=== PATIENT | female | born 1975 | race American Indian/Alaskan Native ===

== ENCOUNTER 2018-02-24 15:28 | Emergency (ER) | payer MEDICAID ==
[2018-02-24 16:27] VITALS: BP 164/104
[2018-02-24] MEDS ORDERED: MOTRIN PO ONE (16:27)
[2018-02-24] MEDS ORDERED: TORADOL IM ONE (20:50)
[2018-02-24] MEDS ORDERED: DELTASONE PO ONE (20:50)
--- NOTE | 2018-02-24 21:03 | Emergency Department Report ---
HPI - General Chief Complaint: Extremity Problem,Nontraumatic Time Seen by Provider: 02/24/18 19:32 - HPI HPI: 42-year-old female presents to ED with left hand pain 2-3 days. Patient states her physical throbbing and tingling sensation on her left hand. Patient states painful Guillermo of face. Patient denies any trauma injuries or fall to the hand. Patient states she is a diabetic and has not taken her meds metformin for her wall due to the fact that she is other insurance. Patient also states that she has a history of a blood pressure continues to take lisinopril 10 mg daily. ED Past Medical Hx - Past Medical History Hx Hypertension: Yes Hx Diabetes: Yes Additional medical history: denies - Surgical History Past Surgical History?: No Additional Surgical History: c-sections, boils - Social History Smoking Status: Current Every Day Smoker Substance Use Type: None - Medications Home Medications: Home Medications Medication Instructions Recorded Confirmed Last Taken Type EPINEPHrine [Epipen 2-Maryan] 0.3 mg IM PRN #2 device 03/31/14 11/09/14 Unknown Rx Losartan/Hydrochlorothiazide 1 each PO DAILY 11/09/14 11/09/14 Unknown History [Hyzaar 50-12.5 Tablet] Albuterol Sulfate [Ventolin HFA] 2 puff IH Q4H PRN #1 hfa.aer.ad 04/05/16 Unknown Rx Azithromycin [Zithromax Z-MARYAN] 250 mg PO DAILY #1 pkg 04/05/16 Unknown Rx Promethazine /Codeine 5 ml PO Q6H PRN #150 udc 04/05/16 Unknown Rx [Phenergan/Codeine 6.25-10 mg/5 ml] predniSONE [Deltasone] 40 mg PO QDAY #10 tab 04/05/16 Unknown Rx Cyclobenzaprine [Flexeril] 10 mg PO QHS PRN #20 tablet 02/24/18 Unknown Rx Ibuprofen [Motrin] 800 mg PO Q8HR PRN #40 tablet 02/24/18 Unknown Rx Lisinopril [Zestril] 10 mg PO DAILY #40 tablet 02/24/18 Unknown Rx metFORMIN [Glucophage] 500 mg PO BID #40 tablet 02/24/18 Unknown Rx ED Review of Systems ROS: Stated complaint: LEFT ARM PAIN/SWELLING Other details as noted in HPI Constitutional: denies: chills, fever Eyes: denies: eye pain, eye discharge, vision change ENT: denies: ear pain, throat pain Respiratory: denies: cough, shortness of breath, wheezing Cardiovascular: denies: chest pain, palpitations Endocrine: no symptoms reported Gastrointestinal: denies: abdominal pain, nausea, diarrhea Genitourinary: denies: urgency, dysuria, discharge Musculoskeletal: myalgia. denies: back pain, joint swelling, arthralgia Skin: denies: rash, lesions Neurological: denies: headache, weakness, paresthesias Psychiatric: denies: anxiety, depression Hematological/Lymphatic: denies: easy bleeding, easy bruising Physical Exam - Physical Exam Vital Signs: Vital Signs 02/24/18 16:22 Temperature 98.5 F Pulse Rate 97 H Blood Pressure 164/104 O2 Sat by Pulse 96 Oximetry Physical Exam: GENERAL: Alert and oriented x3, no apparent distress, Normal Gait, atraumatic. HEAD: Head is normocephalic and a-traumatic. NECK: Supple. Non edematous, No lymphadenopathy or thyromegaly. No C-spine tenderness, full range of motion LUNGS: Symetrical with respiration, No wheezing, no rales or crackles, CTAB. HEART: S1, S2 present, regular rate and rhythm without murmur, no rubs, no gallops. Non tender to palpation EXTREMITIES/MUSCULOSKELETAL: No cyanosis, clubbing, rash, lesions or edema of all upper extremities. Full ROM bilaterally. Radial Pulses 2+ bilaterally. LE and UE 5+ strength bilaterally, left hand tender to palpation, no lacerations, no pitting edema, capillary refills 2 seconds NEUROLOGIC: The patient is cooperative with no focal neurologic deficits. SKIN: Warm and dry, No lesions, No ulceration or induration present. ED Course Vital Signs 02/24/18 16:22 Temperature 98.5 F Pulse Rate 97 H Blood Pressure 164/104 O2 Sat by Pulse 96 Oximetry ED Medical Decision Making - Medical Decision Making 42-year-old female presents with hand pain. ED course: Patient received pain medication and ED. I discussed patieNT uncontrolled diabetes can cause neuropathic pain. I discussed the patient that I would refill her blood pressure and diabetes medication. Discussed patient to follow up with primary care. I discussed the patient to the air wrist brace to help with hand pain. Patient received wrist hand brace in ED prior to discharge. Patient had asymptomatic elevated blood pressure. And states that her blood pressures usually that his. I discussed the patient to start taking blood pressure medication as she gets home. Vital signs are normal. Patient is in no acute or respiratory distress. Critical care attestation.: If time is entered above; I have spent that time in minutes in the direct care of this critically ill patient, excluding procedure time. ED Disposition Clinical Impression: Arthralgia of hand, left Diabetic neuropathy Qualifiers: Diabetes mellitus type: type 2 Disposition: DC-01 TO HOME OR SELFCARE Is pt being admited?: No Does the pt Need Aspirin: No Condition: Stable Instructions: Diabetes Mellitus Type 2 in Adults (ED), Diabetic Neuropathy (ED) , Arthralgia (ED) Additional Instructions: Make sure to follow up with the primary care physician as discussed. Take all your medications as you've been prescribed. If you have any worsening symptoms or develop new symptoms please return to ED immediately. Prescriptions: Cyclobenzaprine [Flexeril] 10 mg PO QHS PRN #20 tablet PRN Reason: Muscle Spasm Ibuprofen [Motrin] 800 mg PO Q8HR PRN #40 tablet PRN Reason: Pain Lisinopril [Zestril] 10 mg PO DAILY #40 tablet metFORMIN [Glucophage] 500 mg PO BID #40 tablet Referrals: PRIMARY CARE, [Primary Care Provider] - 3-[address] [facility] [Outside] - 3-5 Days [facility] [Outside] - 3-5 Days Forms: Accompanied Note, Work/School Release Form(ED) Time of Disposition: 21:11
== END 2018-02-24 21:40 | disposition home or self-care (01) ==
LOC: ED 15:28
DX: M79.642 Pain in left hand (principal); E11.42 Type 2 diabetes mellitus with diabetic polyneuropathy; I10 Essential (primary) hypertension; F17.200 Nicotine dependence, unspecified, uncomplicated
CPT/HCPCS: 29125; 96372; 99282; J1885; J7512

== ENCOUNTER 2018-03-17 13:52 | Emergency (ER) | payer MEDICAID ==
[2018-03-17] MEDS ORDERED: TYLENOL #3 PO ONE (17:32)
[2018-03-17] MEDS ORDERED: TORADOL IM ONE (17:32)
[2018-03-17] MEDS ORDERED: CATAPRES PO ONE (17:42)
--- NOTE | 2018-03-17 17:42 | Emergency Department Report ---
ED Back Pain/Injury HPI - General Chief Complaint: Back Pain/Injury Stated Complaint: BACK PAIN Time Seen by Provider: 03/17/18 17:24 Source: patient Limitations: No Limitations - History of Present Illness Initial Comments: This is a 42-year-old female nontoxic, well nourished in appearance, no acute signs of distress presents to the ED with c/o of right sided mid back pain that radiates to right abdomen area. Patient stated has history of back pain but not this severe. Patient denies any trauma. Denies any bladder or bowel instability. Denies any fever, chills, nausea, vomiting, headache, stiff neck, chest pain or shortness of breath. Patient denies any numbness or tingling. Denies any allergies. PMH includes HTN and DM. Patient stated she missed her dose of lisinopril this morning. MD Complaint: back pain -: days(s) (1) Similar Symptoms Previously: Yes Radiation: abdomen Severity: moderate Severity scale (0 -10): 8 Quality: aching Consistency: constant Improves With: immobilization, supine, sitting upright Worsens With: movement, walking Associated Symptoms: abdominal pain. denies: confusion, weakness, chest pain, numbness, difficulty walking, cough, difficulty urinating, diaphoresis, incontinence, fever/chills, constipation, headaches, loss of appetite, malaise, nausea/vomiting, rash, seizure, shortness of breath, syncope - Related Data Home Medications Medication Instructions Recorded Confirmed Last Taken Losartan/Hydrochlorothiazide 1 each PO DAILY 11/09/14 11/09/14 Unknown [Hyzaar 50-12.5 Tablet] Previous Rx's Medication Instructions Recorded Last Taken Type EPINEPHrine [Epipen 2-Maryan] 0.3 mg IM PRN #2 device 03/31/14 Unknown Rx Albuterol Sulfate [Ventolin HFA] 2 puff IH Q4H PRN #1 hfa.aer.ad 04/05/16 Unknown Rx Azithromycin [Zithromax Z-MARYAN] 250 mg PO DAILY #1 pkg 04/05/16 Unknown Rx Promethazine /Codeine 5 ml PO Q6H PRN #150 udc 04/05/16 Unknown Rx [Phenergan/Codeine 6.25-10 mg/5 ml] predniSONE [Deltasone] 40 mg PO QDAY #10 tab 04/05/16 Unknown Rx Cyclobenzaprine [Flexeril] 10 mg PO QHS PRN #20 tablet 02/24/18 Unknown Rx Ibuprofen [Motrin] 800 mg PO Q8HR PRN #40 tablet 02/24/18 Unknown Rx Lisinopril [Zestril] 10 mg PO DAILY #40 tablet 02/24/18 Unknown Rx metFORMIN [Glucophage] 500 mg PO BID #40 tablet 02/24/18 Unknown Rx Acetaminophen/Codeine [Tylenol 1 tab PO Q6H PRN #12 tab 03/17/18 Unknown Rx /Codeine # 3 tab] Ibuprofen [Motrin] 600 mg PO Q8H PRN #30 tablet 03/17/18 Unknown Rx Allergies Allergy/AdvReac Type Severity Reaction Status Date / Time No Known Allergies Allergy Verified 11/09/14 23:26 ED Review of Systems ROS: Stated complaint: BACK PAIN Other details as noted in HPI Constitutional: denies: chills, fever Eyes: denies: eye pain, eye discharge, vision change ENT: denies: ear pain, throat pain Respiratory: denies: cough, shortness of breath, wheezing Cardiovascular: denies: chest pain, palpitations Endocrine: no symptoms reported Gastrointestinal: abdominal pain. denies: nausea, vomiting, diarrhea Genitourinary: denies: urgency, dysuria, discharge Musculoskeletal: back pain. denies: joint swelling, arthralgia Skin: denies: rash, lesions Neurological: denies: headache, weakness, paresthesias Psychiatric: denies: anxiety, depression Hematological/Lymphatic: denies: easy bleeding, easy bruising ED Past Medical Hx - Past Medical History Hx Hypertension: Yes Hx Diabetes: Yes Additional medical history: denies - Surgical History Additional Surgical History: c-sections, boils - Social History Smoking Status: Never Smoker Substance Use Type: None - Medications Home Medications: Home Medications Medication Instructions Recorded Confirmed Last Taken Type EPINEPHrine [Epipen 2-Maryan] 0.3 mg IM PRN #2 device 03/31/14 11/09/14 Unknown Rx Losartan/Hydrochlorothiazide 1 each PO DAILY 11/09/14 11/09/14 Unknown History [Hyzaar 50-12.5 Tablet] Albuterol Sulfate [Ventolin HFA] 2 puff IH Q4H PRN #1 hfa.aer.ad 04/05/16 Unknown Rx Azithromycin [Zithromax Z-MARYAN] 250 mg PO DAILY #1 pkg 04/05/16 Unknown Rx Promethazine /Codeine 5 ml PO Q6H PRN #150 udc 04/05/16 Unknown Rx [Phenergan/Codeine 6.25-10 mg/5 ml] predniSONE [Deltasone] 40 mg PO QDAY #10 tab 04/05/16 Unknown Rx Cyclobenzaprine [Flexeril] 10 mg PO QHS PRN #20 tablet 02/24/18 Unknown Rx Ibuprofen [Motrin] 800 mg PO Q8HR PRN #40 tablet 02/24/18 Unknown Rx Lisinopril [Zestril] 10 mg PO DAILY #40 tablet 02/24/18 Unknown Rx metFORMIN [Glucophage] 500 mg PO BID #40 tablet 02/24/18 Unknown Rx Acetaminophen/Codeine [Tylenol 1 tab PO Q6H PRN #12 tab 03/17/18 Unknown Rx /Codeine # 3 tab] Ibuprofen [Motrin] 600 mg PO Q8H PRN #30 tablet 03/17/18 Unknown Rx ED Physical Exam - General Limitations: No Limitations General appearance: alert, in no apparent distress - Head Head exam: Present: atraumatic, normocephalic - Eye Eye exam: Present: normal appearance Pupils: Present: normal accommodation - ENT ENT exam: Present: normal exam, mucous membranes moist - Neck Neck exam: Present: normal inspection, full ROM. Absent: tenderness, meningismus, lymphadenopathy - Respiratory Respiratory exam: Present: normal lung sounds bilaterally. Absent: respiratory distress, wheezes, rales, rhonchi, stridor, chest wall tenderness, accessory muscle use, decreased breath sounds, prolonged expiratory - Cardiovascular Cardiovascular Exam: Present: regular rate, normal rhythm, tachycardia, normal heart sounds. Absent: irregular rhythm, systolic murmur, diastolic murmur, rubs , gallop - GI/Abdominal GI/Abdominal exam: Present: soft, tenderness (RUQ), normal bowel sounds. Absent : distended, guarding, rebound, rigid, diminished bowel sounds - Expanded GI/Abdominal Exam Expanded GI/Abdominal exam: Absent: psoas sign, obturator sign, heel tap sign, Ocampo's sign, Rovsing's sign, tenderness at Mcburney's Point, ascites - Rectal Rectal exam: Present: deferred - Extremities Exam Extremities exam: Present: normal inspection, full ROM, normal capillary refill. Absent: tenderness - Back Exam Back exam: Present: normal inspection, full ROM, paraspinal tenderness (right throacic spine). Absent: CVA tenderness (R), CVA tenderness (L), muscle spasm, vertebral tenderness, rash noted - Expanded Back Exam Expanded Back exam: Absent: saddle anesthesia Back exam: Negative Straight Leg Raising: Left, Right - Neurological Exam Neurological exam: Present: alert, oriented X3, normal gait - Psychiatric Psychiatric exam: Present: normal affect, normal mood - Skin Skin exam: Present: warm, dry, intact, normal color. Absent: rash ED Course Vital Signs 03/17/18 03/17/18 14:20 18:07 Temperature 98.4 F Pulse Rate 92 H 94 H Respiratory 20 Rate Blood Pressure 184/120 184/120 O2 Sat by Pulse 98 Oximetry - Reevaluation(s) Reevaluation #1: 03/17/18 18:28 Patient is speaking in full sentences with no signs of distress noted. - Consultations Consultation #1: 03/17/18 18:29 Patient has been consulted with Dr. Carmona about patient history, physical exam, and labs/CT and agrees to ED plan of care. ED Medical Decision Making - Lab Data Result diagrams: 03/17/18 17:42 03/17/18 17:42 - Medical Decision Making This is a 42-year-old female that presents with cholelithiasis and hypertension. Patient is stable and was examined by me and Dr. Carmona. CT of abdomen with contrast obtained and dictated by the radiologist. Patient is notified of the CT report with no questions noted by the patient. Labs obtained. UA obtained. PAtient received Toradol, Catapres, Tylenol No. 3 and stated symptoms are resolving and subsiding. B/P decreased prior to discharge. Patient was instructed to continue taking blood pressure medication as her primary care doctor prescribed. Patient is daughter is currently at the bedside and states she will just the patient home after discharge due to possible drowsiness of Tylenol 3. A po challenge has been obtained and patient tolerated well with no nausea or vomiting. Patient is discharged with Motrin and Tylenol No. 3. Patient was instructed to Follow-up with a primary care doctor in 3-5 days or if symptoms worsen and continue return to emergency room as soon as possible. At time of discharge, the patient does not seem toxic or ill in appearance. No acute signs of distress noted. Patient agrees to discharge treatment plan of care. No further questions noted by the patient. Critical care attestation.: If time is entered above; I have spent that time in minutes in the direct care of this critically ill patient, excluding procedure time. ED Disposition Clinical Impression: Hypertension Qualifiers: Hypertension type: unspecified Qualified Code(s): I10 - Essential (primary) hypertension Cholelithiasis Qualifiers: Cholelithiasis location: gallbladder Cholecystitis presence: without cholecystitis Biliary obstruction: with biliary obstruction Qualified Code(s): K80.21 - Calculus of gallbladder without cholecystitis with obstruction Disposition: TO HOME OR SELFCARE Is pt being admited?: No Does the pt Need Aspirin: No Condition: Stable Instructions: Hypertension (ED), Biliary Colic (ED), Acetaminophen/Codeine (By mouth) Additional Instructions: Follow-up with a primary care doctor in 3-5 days or if symptoms worsen and continue return to emergency room as soon as possible. 2. Battery of your blood pressure and presented to primary care doctor. Prescriptions: Acetaminophen/Codeine [Tylenol /Codeine # 3 tab] 1 tab PO Q6H PRN #12 tab PRN Reason: Pain Ibuprofen [Motrin] 600 mg PO Q8H PRN #30 tablet PRN Reason: Pain Referrals: PRIMARY CARE, [Primary Care Provider] - 3-5 Days SABRINA FIGUEROA MD [Staff Physician] - 3-5 Days [facility] [Outside] - 3-5 Days [facility] [Outside] - 3-5 Days Forms: Work/School Release Form(ED)
[2018-03-17 18:03] LABS: Basophils # (Auto) 0.1 K/mm3 (0.0-0.1); Eosinophils # (Auto) 0.2 K/mm3 (0.0-0.4); Eosinophils % (Auto) 2.3 % (0.0-4.3); Hemoglobin 12.3 gm/dl (10.1-14.3); Lymphocytes # (Auto) 4.3 K/mm3 (1.2-5.4); Lymphocytes % (Auto) 46.7 % (13.4-35.0); Mean Corpuscular HGB Conc 32 % (30-34); Mean Corpuscular Volume 80 fl (79-97); Monocytes # (Auto) 0.5 K/mm3 (0.0-0.8); Monocytes % (Auto) 5.2 % (0.0-7.3); Platelet Count 313 K/mm3 (140-440); Red Blood Count 4.85 M/mm3 (3.65-5.03); Red Cell Distribution Width 15.4 % (13.2-15.2)
[2018-03-17 18:15] LABS: Mean Corpuscular Hemoglobin 25 pg (28-32)
[2018-03-17 18:27] LABS: Alanine Aminotransferase 8 units/L (7-56); Albumin 3.7 g/dL (3.9-5); BUN/Creatinine Ratio 32; Blood Urea Nitrogen 19 mg/dL (7-17); Calcium 9.3 mg/dL (8.4-10.2); Hemolysis Index 15; Lipase 20 units/L (13-60)
[2018-03-17 19:24] LABS: Bilirubin,Urine NEG (Negative); Blood,Urine NEG (Negative); Color,Urine Yellow (Yellow); Mucus,Urine 3+ /HPF; Urobilinogen,Urine < 2.0 mg/dL (<2.0)
[2018-03-17 19:26] LABS: Protein,Urine >500 mg/dL (Negative)
--- NOTE | 2018-03-17 20:28 | Cat Scan Report ---
FINAL REPORT PROCEDURE: CT ANGIO CHEST TECHNIQUE: Computerized tomographic angiography of the chest was performed after the IV injection of iodinated nonionic contrast including image processing. The image data was postprocessed using 2-dimensional multiplanar reformatted (MPR) and 3-dimensional (MIP and/or volume rendered) techniques. HISTORY: back pain with shortness of breath COMPARISON: No prior studies are available for comparison. FINDINGS: Prominent thyroid. Heart and pericardium: Normal. Thoracic aorta: Normal. Pulmonary vasculature: Normal. Lymph nodes: There are borderline prominent bilateral axillary lymph nodes. There are also numerous subcentimeter mediastinal nodes and periaortic lymph nodes identified. Lungs: Normal. Pleural space: No effusion, thickening, or pneumothorax. Musculoskeletal structures: Multilevel thoracic spine degenerative disc changes, with disc space narrowing and osteophyte formation. Upper abdominal structures: See separate CT report. There is skin thickening noted in the midline anterior chest wall. Correlate with exam. IMPRESSION: No evidence of pulmonary emboli. Mild adenopathy. Prominent thyroid gland
--- NOTE | 2018-03-17 20:48 | Cat Scan Report ---
FINAL REPORT PROCEDURE: CT ABDOMEN PELVIS W CON TECHNIQUE: Computerized axial tomography of the abdomen and pelvis was performed after the IV injection of iodinated nonionic contrast. HISTORY: abd pain COMPARISON: No prior studies are available for comparison. FINDINGS: Liver: Normal size and attenuation. Spleen: Normal size and attenuation. Gallbladder and biliary system: Numerous gallstones are present. The common bile duct measures 8 millimeters in caliber. There is also high density seen in the common bile duct, concerning for choledocholithiasis. Pancreas: Normal. Adrenals: Normal. 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 No hydronephrosis of either kidney is noted. GI tract: No bowel obstruction or acute inflammation. Lymph nodes and mesentery: Normal. Vasculature: Normal. Bladder: Normal. Reproductive organs: Uterine fibroids. Peritoneum: No free fluid. Musculoskeletal structures: Multilevel lumbar spine degenerative changes. Other: None. IMPRESSION: Cholelithiasis. The common bile duct is dilated, and there is also probable choledocholithiasis. Recommend further evaluation Ectopic kidney. Uterine fibroids
[2018-03-17 20:58] VITALS: BP 156/107
== END 2018-03-17 21:20 | disposition home or self-care (01) ==
LOC: ED 13:52
DX: I10 Essential (primary) hypertension (principal); K80.21 Calculus of gallbladder without cholecystitis with obstruction; E11.9 Type 2 diabetes mellitus without complications
CPT/HCPCS: 36415; 71275; 74177; 80053; 81001; 83690; 84703; 85025; 96372; 99284; J1885; Q9967

== ENCOUNTER 2021-12-22 06:28 | Emergency (ER) | payer MEDICAID, OTHER ==
[2021-12-22 08:25] VITALS: BP 164/111
--- NOTE | 2021-12-22 09:20 | Emergency Department Report ---
ED General Adult HPI - General Chief complaint: Dental/Oral Stated complaint: ALLERGIC REACTION TO MEDS Time Seen by Provider: 12/22/21 08:43 Source: patient Mode of arrival: Ambulatory Limitations: No Limitations - History of Present Illness Initial comments: 46-year-old morbid obese -French female presents to the emergency room complaining of 2 complaints. Patient states that she has a history of hidradenitis and has been placed on clindamycin vaginal as well as another medication that starts with an a.m. that she is not able to remember. She also states that she has a dental abscess in her left upper jaw and her dentist is placed on oral clindamycin and Flagyl. Patient complains of itching in her vulvar area and will have a internal itch. She has taken nothing for this itchiness. She states that her dentist reports that her pain may be coming from a tooth sitting on a nerve. She reports she gave her Camas for 4 pills. She reports that her commercial fisherman also gave her prescription for fluconazole that she had taken and then another prescription for Diflucan. Patient states that the fluconazole did not help but she is still on antibiotics. She never started the prescription for Diflucan. Onset/Timin -: week(s) Location: mouth, genitals Severity scale (0 -10): 8 Quality: stabbing (In her mouth), aching (Mouth), other (Itching in her genital area) Consistency: constant Improves with: none Worsens with: none Associated Symptoms: denies other symptoms. denies: headaches, loss of appet ite, nausea/vomiting, shortness of breath, syncope, weakness - Related Data Home Medications Medication Instructions Recorded Confirmed Last Taken Losartan/Hydrochlorothiazide 1 each PO DAILY 11/09/14 11/09/14 Unknown [Hyzaar 50-12.5 Tablet] Previous Rx's Medication Instructions Recorded Last Taken Type EPINEPHrine [Epipen 2-Maryan] 0.3 mg IM PRN #2 device 03/31/14 Unknown Rx Albuterol Sulfate [Ventolin HFA] 2 puff IH Q4H PRN #1 hfa.aer.ad 04/05/16 Unknown Rx Azithromycin [Zithromax Z-MARYAN] 250 mg PO DAILY #1 pkg 04/05/16 Unknown Rx Promethazine /Codeine 5 ml PO Q6H PRN #150 udc 04/05/16 Unknown Rx [Phenergan/Codeine 6.25-10 mg/5 ml] predniSONE [Deltasone] 40 mg PO QDAY #10 tab 04/05/16 Unknown Rx Cyclobenzaprine [Flexeril] 10 mg PO QHS PRN #20 tablet 02/24/18 Unknown Rx Ibuprofen [Motrin] 800 mg PO Q8HR PRN #40 tablet 02/24/18 Unknown Rx Lisinopril [Zestril] 10 mg PO DAILY #40 tablet 02/24/18 Unknown Rx metFORMIN [Glucophage] 500 mg PO BID #40 tablet 02/24/18 Unknown Rx Acetaminophen/Codeine [Tylenol 1 tab PO Q6H PRN #12 tab 03/17/18 Unknown Rx /Codeine # 3 tab] Ibuprofen [Motrin] 600 mg PO Q8H PRN #30 tablet 03/17/18 Unknown Rx Acetaminophen/Codeine [Tylenol 1 tab PO Q6H PRN #12 tab 10/23/18 Unknown Rx /Codeine # 3 tab] Nystatin 1,000,000 unit MC BID PRN #1 bottle 12/22/21 Unknown Rx Allergies Allergy/AdvReac Type Severity Reaction Status Date / Time No Known Allergies Allergy Verified 11/09/14 23:26 ED Review of Systems ROS: Stated complaint: ALLERGIC REACTION TO MEDS Other details as noted in HPI Comment: All other systems reviewed and negative ED Past Medical Hx - Past Medical History Previous Medical History?: Yes Hx Hypertension: Yes Hx Diabetes: Yes Additional medical history: denies - Surgical History Past Surgical History?: Yes Additional Surgical History: c-sections x 2. D&C. boils - Social History Smoking Status: Current Every Day Smoker Substance Use Type: None - Medications Home Medications: Home Medications Medication Instructions Recorded Confirmed Last Taken Type EPINEPHrine [Epipen 2-Maryan] 0.3 mg IM PRN #2 device 03/31/14 11/09/14 Unknown Rx Losartan/Hydrochlorothiazide 1 each PO DAILY 11/09/14 11/09/14 Unknown History [Hyzaar 50-12.5 Tablet] Albuterol Sulfate [Ventolin HFA] 2 puff IH Q4H PRN #1 hfa.aer.ad 04/05/16 Unknown Rx Azithromycin [Zithromax Z-MARYAN] 250 mg PO DAILY #1 pkg 04/05/16 Unknown Rx Promethazine /Codeine 5 ml PO Q6H PRN #150 udc 04/05/16 Unknown Rx [Phenergan/Codeine 6.25-10 mg/5 ml] predniSONE [Deltasone] 40 mg PO QDAY #10 tab 04/05/16 Unknown Rx Cyclobenzaprine [Flexeril] 10 mg PO QHS PRN #20 tablet 02/24/18 Unknown Rx Ibuprofen [Motrin] 800 mg PO Q8HR PRN #40 tablet 02/24/18 Unknown Rx Lisinopril [Zestril] 10 mg PO DAILY #40 tablet 02/24/18 Unknown Rx metFORMIN [Glucophage] 500 mg PO BID #40 tablet 02/24/18 Unknown Rx Acetaminophen/Codeine [Tylenol 1 tab PO Q6H PRN #12 tab 03/17/18 Unknown Rx /Codeine # 3 tab] Ibuprofen [Motrin] 600 mg PO Q8H PRN #30 tablet 03/17/18 Unknown Rx Acetaminophen/Codeine [Tylenol 1 tab PO Q6H PRN #12 tab 10/23/18 Unknown Rx /Codeine # 3 tab] Nystatin 1,000,000 unit MC BID PRN #1 bottle 12/22/21 Unknown Rx ED Physical Exam - General Limitations: No Limitations General appearance: alert, in no apparent distress - Head Head exam: Present: atraumatic, normocephalic - Eye Eye exam: Present: normal appearance - ENT ENT exam: Present: mucous membranes moist - Neck Neck exam: Present: normal inspection - Respiratory Respiratory exam: Present: normal lung sounds bilaterally. Absent: respiratory distress - Cardiovascular Cardiovascular Exam: Present: regular rate, normal rhythm. Absent: systolic murmur, diastolic murmur, rubs, gallop - GI/Abdominal GI/Abdominal exam: Present: soft, normal bowel sounds - External exam: Present: erythema, swelling - Extremities Exam Extremities exam: Present: normal inspection - Back Exam Back exam: Present: normal inspection - Neurological Exam Neurological exam: Present: alert, oriented X3, normal gait - Psychiatric Psychiatric exam: Present: normal affect, normal mood - Skin Skin exam: Present: warm, dry, intact, normal color. Absent: rash ED Course Vital Signs 12/22/21 12/22/21 12/22/21 08:19 08:22 08:23 Temperature 98.0 F 98.0 F Pulse Rate 96 H 91 H Respiratory 18 18 Rate Blood Pressure 164/111 [Left] O2 Sat by Pulse 99 99 Oximetry ED Medical Decision Making - Medical Decision Making 46-year-old morbid obese -French female presents to the emergency room complaining of 2 complaints. Patient states that she has a history of hidradenitis and has been placed on clindamycin vaginal as well as another medication that starts with an a.m. that she is not able to remember. She also states that she has a dental abscess in her left upper jaw and her dentist is placed on oral clindamycin and Flagyl. Patient complains of itching in her vulvar area and will have a internal itch. She has taken nothing for this itchiness. She states that her dentist reports that her pain may be coming from a tooth sitting on a nerve. She reports she gave her Camas for 4 pills. She reports that her commercial fisherman also gave her prescription for fluconazole that she had taken and then another prescription for Diflucan. Patient states that the fluconazole did not help but she is still on antibiotics. She never started the prescription for Diflucan. Discussed with patient I will place her on nystatin powder that she can use in her vulvar area she can take ibuprofen 800 mg every 6-8 hours. She needs to complete her clindamycin her Flagyl and take the Diflucan that was prescribed to her after she has completed her clindamycin. Critical care attestation.: If time is entered above; I have spent that time in minutes in the direct care of this critically ill patient, excluding procedure time. ED Disposition Clinical Impression: Hidradenitis, Pain, dental Disposition: 01 HOME / SELF CARE / HOMELESS Is pt being admited?: No Does the pt Need Aspirin: No Condition: Stable Instructions: Hidradenitis Suppurativa Additional Instructions: Please complete your antibiotics for your mouth. Tylenol ibuprofen for pain management. Once you have completed your clindamycin orally please take the Diflucan that was prescribed to you by your commercial fisherman. Please use the nystatin powder twice a day to affected area. Follow-up with your commercial fisherman as well as your dentist. Prescriptions: Nystatin 1,000,000 unit MC BID PRN #1 bottle PRN Reason: Rash Referrals: PRIMARY CARE,MD [Primary Care Provider] - 3-5 Days Your, dentist and commercial fisherman [Other] - 3-5 Days Forms: Work/School Release Form(ED) Time of Disposition: 09:23
== END 2021-12-22 09:51 | disposition home or self-care (01) ==
LOC: ED 06:28
DX: L73.2 Hidradenitis suppurativa (principal); K08.89 Other specified disorders of teeth and supporting structures; I10 Essential (primary) hypertension; E11.9 Type 2 diabetes mellitus without complications; F17.200 Nicotine dependence, unspecified, uncomplicated; Z98.890 Other specified postprocedural states
CPT/HCPCS: 99282

== ENCOUNTER 2022-01-02 21:00 | Emergency (ER) | payer OTHER ==
[2022-01-02 21:13] VITALS: BP 195/126
[2022-01-02] MEDS ORDERED: hydrOXYzine HCL 25 MG TAB PO ONE (22:40)
[2022-01-02] MEDS ORDERED: FAMOTIDINE 20 MG TAB PO ONE (22:40)
--- NOTE | 2022-01-02 22:42 | Emergency Department Report ---
ED General Adult HPI - General Chief complaint: Allergic Reaction Stated complaint: ALLERGIC REACTION TO MEDICATION Time Seen by Provider: 01/02/22 22:16 Source: patient Mode of arrival: Ambulatory Limitations: No Limitations - History of Present Illness Initial comments: The patient was evaluated in the emergency department for symptoms described in the history of present illness. He/she was evaluated in the context of the global COVID-19 pandemic, which necessitated consideration that the patient might be at risk for infection with the virus that causes COVID-19. Institutional protocols and algorithms that pertain to the evaluation of patients at risk for COVID-19 are in a state of rapid change based on information released by regulatory bodies including the CDC and federal and state organizations. These policies and algorithms were followed during the patient's care in the emergency department. Please note that these policies, procedures and recommendations changed on a rapid basis. During the history and physical examination I am chaperoned by Veronica Shipman The patient is a 46-year-old female who presents to the ER today with a complaint of external vaginal itching and pruritus for about a month. She reports that she is not . She denies urinary symptoms. She denies fevers and chills. She also has a history of hidradenitis and a body mass index of 36, and also has a past medical history of diabetes. She reports that she has follow-up with a inventory control clerk within the week or so, and also is outpatient follow-up with her primary care doctor. -: Gradual, week(s) Location: genitals Consistency: constant Improves with: none Worsens with: none - Related Data Home Medications Medication Instructions Recorded Confirmed Last Taken Losartan/Hydrochlorothiazide 1 each PO DAILY 11/09/14 11/09/14 Unknown [Hyzaar 50-12.5 Tablet] Previous Rx's Medication Instructions Recorded Last Taken Type Albuterol Sulfate [Ventolin HFA] 2 puff IH Q4H PRN #1 hfa.aer.ad 04/05/16 Unknown Rx Azithromycin [Zithromax Z-DERECK] 250 mg PO DAILY #1 pkg 04/05/16 Unknown Rx predniSONE [Deltasone] 40 mg PO QDAY #10 tab 04/05/16 Unknown Rx Ibuprofen [Motrin] 800 mg PO Q8HR PRN #40 tablet 02/24/18 Unknown Rx Lisinopril [Zestril] 10 mg PO DAILY #40 tablet 02/24/18 Unknown Rx metFORMIN [Glucophage] 500 mg PO BID #40 tablet 02/24/18 Unknown Rx Ibuprofen [Motrin] 600 mg PO Q8H PRN #30 tablet 03/17/18 Unknown Rx EPINEPHrine [Epipen 2-Dereck] 0.3 mg IM PRN #2 device 01/02/22 Unknown Rx Famotidine [Pepcid] 20 mg PO BID PRN #10 tablet 01/02/22 Unknown Rx Nystatin 1,000,000 unit MC BID PRN #1 bottle 01/02/22 Unknown Rx hydrOXYzine HCL [Atarax] 25 mg PO Q6HR PRN #15 tablet 01/02/22 Unknown Rx Allergies Allergy/AdvReac Type Severity Reaction Status Date / Time No Known Allergies Allergy Verified 11/09/14 23:26 ED Review of Systems ROS: Stated complaint: ALLERGIC REACTION TO MEDICATION Other details as noted in HPI Constitutional: denies: fever Eyes: denies: eye discharge ENT: denies: epistaxis Respiratory: denies: cough Cardiovascular: denies: chest pain Gastrointestinal: denies: abdominal pain Genitourinary: as per HPI Skin: pruritus ED Past Medical Hx - Past Medical History Previous Medical History?: Yes Hx Hypertension: Yes (NOT MEDICATED) Hx Diabetes: Yes Additional medical history: denies - Surgical History Past Surgical History?: Yes Additional Surgical History: c-sections x 2. D&C. boils - Social History Smoking Status: Current Every Day Smoker Substance Use Type: None - Medications Home Medications: Home Medications Medication Instructions Recorded Confirmed Last Taken Type Losartan/Hydrochlorothiazide 1 each PO DAILY 11/09/14 11/09/14 Unknown History [Hyzaar 50-12.5 Tablet] Albuterol Sulfate [Ventolin HFA] 2 puff IH Q4H PRN #1 hfa.aer.ad 04/05/16 Unknown Rx Azithromycin [Zithromax Z-DERECK] 250 mg PO DAILY #1 pkg 04/05/16 Unknown Rx predniSONE [Deltasone] 40 mg PO QDAY #10 tab 04/05/16 Unknown Rx Ibuprofen [Motrin] 800 mg PO Q8HR PRN #40 tablet 02/24/18 Unknown Rx Lisinopril [Zestril] 10 mg PO DAILY #40 tablet 02/24/18 Unknown Rx metFORMIN [Glucophage] 500 mg PO BID #40 tablet 02/24/18 Unknown Rx Ibuprofen [Motrin] 600 mg PO Q8H PRN #30 tablet 03/17/18 Unknown Rx EPINEPHrine [Epipen 2-Dereck] 0.3 mg IM PRN #2 device 01/02/22 Unknown Rx Famotidine [Pepcid] 20 mg PO BID PRN #10 tablet 01/02/22 Unknown Rx Nystatin 1,000,000 unit MC BID PRN #1 bottle 01/02/22 Unknown Rx hydrOXYzine HCL [Atarax] 25 mg PO Q6HR PRN #15 tablet 01/02/22 Unknown Rx ED Physical Exam - General Limitations: No Limitations General appearance: alert, in no apparent distress - Head Head exam: Present: atraumatic, normocephalic - Eye Eye exam: Present: normal appearance, EOMI. Absent: nystagmus - ENT ENT exam: Present: normal exam, normal orophraynx, mucous membranes moist, normal external ear exam - Neck Neck exam: Present: normal inspection, full ROM. Absent: tenderness, meningismus - Respiratory Respiratory exam: Present: normal lung sounds bilaterally. Absent: respiratory distress, wheezes, rales, rhonchi, stridor, decreased breath sounds - Cardiovascular Cardiovascular Exam: Present: regular rate, normal rhythm, normal heart sounds. Absent: bradycardia, tachycardia, irregular rhythm, systolic murmur, diastolic murmur, rubs, gallop - GI/Abdominal GI/Abdominal exam: Present: soft. Absent: distended, tenderness, guarding, rebound, rigid, pulsatile mass - External exam: Present: erythema, lesions (Hyperpigmented lesions noted on the gluteal cleft, consistent with hidradenitis), other (Chaperoned by Veronica Shipman). Absent: swelling, lacerations, ecchymosis, bleeding - Extremities Exam Extremities exam: Present: normal inspection, full ROM, other (2+ pulses noted in the bilateral upper and lower extremities. There is no palpable cord. negative Homans sign. Muscular compartments are soft. The pelvis is stable.). Absent: pedal edema, joint swelling, calf tenderness - Back Exam Back exam: Present: normal inspection, full ROM. Absent: tenderness, CVA tenderness (R), CVA tenderness (L), paraspinal tenderness, vertebral tenderness - Neurological Exam Neurological exam: Present: alert, oriented X3, normal gait, other (No facial droop. Tongue midline. Extraocular movements intact bilaterally. Facial sensation intact to light touch in V1, V2, V3 distribution bilaterally. 5 and a 5 strength in 4 extremities. Sensation intact to light touch in 4 extremities.). Absent: motor sensory deficit - Psychiatric Psychiatric exam: Present: normal affect, normal mood - Skin Skin exam: Present: warm, dry, intact, erythema, other (Beefy red labia majora and labia minora. Scant external discharge.). Absent: cyanosis, diaphoretic, vesicles ED Course Vital Signs 01/02/22 01/03/22 21:10 03:23 Temperature 98.8 F Pulse Rate 97 H 76 Respiratory 18 16 Rate Blood Pressure 195/126 O2 Sat by Pulse 99 100 Oximetry ED Medical Decision Making - Lab Data Vital Signs 01/02/22 21:10 Temperature 98.8 F Pulse Rate 97 H Respiratory 18 Rate Blood Pressure 195/126 O2 Sat by Pulse 99 Oximetry - Medical Decision Making Differential diagnosis, including but not limited to: Chronic hidradenitis, chronic vaginitis, chronic vaginal pruritus, chronic elevated blood pressure Assessment and plan: 46-year-old female who reports that she is not , who is afebrile with reassuring vital signs with the exception of chronically elevated blood pressure which is asymptomatic, please reference the [employer] clinical policy on asymptomatic hypertension, presenting to the ER today with a complaint of 1 month of external vaginal itching, without the presence of irritative or obstructive urinary symptoms. External exam is suggestive of vaginitis, which is likely combination of chronic hidradenitis which at this point time does not appear to be superinfected, there may also be a component of vaginitis secondary to diabetes. Patient reports recent hemoglobin A1c of 7.1, down from 9. Patient counseled that this is not an emergent medical condition at this time, and that this will likely take weeks to months to improve. Offered patient nystatin as well as Atarax for supportive and symptomatic control, she reports she has follow-up with a primary care doctor and inventory control clerk within the next week or so. She may also follow-up with an outpatient primary care doctor for chronically elevated blood pressure. Critical care attestation.: If time is entered above; I have spent that time in minutes in the direct care of this critically ill patient, excluding procedure time. ED Disposition Clinical Impression: Vaginitis, Elevated blood pressure reading, Pruritus Disposition: 01 HOME / SELF CARE / HOMELESS Is pt being admited?: No Does the pt Need Aspirin: No Condition: Good Instructions: Hypertension, Adult, [id number], Vaginitis Additional Instructions: Patient is found to have elevated blood pressure today which appears to be chronic. Please remain compliant with outpatient blood pressure medications. Please follow-up with your primary care doctor for chronically elevated blood pressure within the next month. Long-term complications of hypertension elevated blood pressure include stroke, heart attack, disability, paralysis, and loss of quality of life. Alternate warm compresses and cool compresses to the external vaginal area as needed for physical comfort. Patient may use the nystatin powder, and take the Atarax, Pepcid as needed for itching. Use the epinephrine pen only if patient develops inability to speak or breathe. We do recommend follow-up with your outpatient webbing inspector or inventory control clerk for chronic external vaginitis within the next 2 weeks. Please return to the emergency room right away with new pain, worsened pain, migration of pain, projectile vomiting, change in mental status, confusion, inability tolerate liquid feeds, new, worsened or different symptoms not present on the initial emergency room evaluation Prescriptions: hydrOXYzine HCL [Atarax] 25 mg PO Q6HR PRN #15 tablet PRN Reason: Itching EPINEPHrine [Epipen 2-Dereck] 0.3 mg IM PRN #2 device Nystatin 1,000,000 unit MC BID PRN #1 bottle PRN Reason: Rash Famotidine [Pepcid] 20 mg PO BID PRN #10 tablet PRN Reason: Itching Referrals: [facility] [Provider Group] - 3-5 Days [facility] [Provider Group] - 3-5 Days
== END 2022-01-02 23:10 | disposition home or self-care (01) ==
LOC: ED 21:00
DX: N76.0 Acute vaginitis (principal); L29.2 Pruritus vulvae; I10 Essential (primary) hypertension; E11.9 Type 2 diabetes mellitus without complications; Z98.890 Other specified postprocedural states; F17.200 Nicotine dependence, unspecified, uncomplicated
CPT/HCPCS: 99283; Q0177